=== PATIENT | male | born 1960 | race Caucasian/White ===

== ENCOUNTER → 2016-05-01 | Outpatient (CLI) | payer OTHER ==
[~2016-05-01] MED LIST: CYCL-36 PO; LORC10TA PO
--- NOTE | 2016-05-01 14:50 | RADRPT ---
EXAM DATE/TIME: 05/01/2016 14:15 [facility] COMPARISON: No previous studies available for comparison. INDICATIONS : Hypertension. MEDICAL HISTORY : Hypertension. SURGICAL HISTORY : Tonsillectomy. Left hip. ENCOUNTER: Initial ACUITY: 1 day PAIN SCORE: 0/10 LOCATION: chest FINDINGS: The lungs are clear. The heart is normal in size. The mediastinal contours are within normal limits. There are multiple old, healed right-sided rib fractures. CONCLUSION: 1. Old right-sided rib fractures. The lungs are clear. Asaf Alba MD on May 01, 2016 at 14:44 Board Certified Radiologist. This report was verified electronically.
--- NOTE | 2016-05-01 16:15 | RADRPT ---
EXAM DATE/TIME: 05/01/2016 13:56 [facility] COMPARISON: No previous studies available for comparison. INDICATIONS : Enlarged thyroid. MEDICAL HISTORY : Gastroesophageal reflux disease. SURGICAL HISTORY : Tonsillectomy. Left hip surgery. ENCOUNTER: Initial ACUITY: 1 day PAIN SCORE: 2/10 LOCATION: Right neck MEASUREMENTS: RIGHT LOBE: 1.7 x 1.4 x 4.2 cm LEFT LOBE: 1.6 x 1.7 x 4.0 cm FINDINGS: RIGHT LOBE: Homogeneous echotexture without nodules or cysts. Vascularity is within normal limits. LEFT LOBE: Isolated, 1 cm hypoechoic area in the posterior midpole of the left lobe of the thyroid. ISTHMUS: Normal in size without focal abnormality. CONCLUSION: Isolated, 1 cm hypoechoic nodule in the posterior midpole of the left lobe of the thyroid. Reji Jackman MD on May 01, 2016 at 16:12 Board Certified Radiologist. This report was verified electronically.
== END ==
LOC: HRAD 13:33
DX: I10 Essential (primary) hypertension (principal); E01.0 Iodine-deficiency related diffuse (endemic) goiter
CPT/HCPCS: 71020; 76536

== ENCOUNTER → 2016-06-24 | Outpatient (CLI) | payer OTHER ==
--- NOTE | 2016-06-24 15:38 | RADRPT ---
EXAM DATE/TIME: 06/24/2016 15:09 [facility] COMPARISON: No previous studies available for comparison. INDICATIONS : Right axilla pain and swelling that is worse in the evening time. MEDICAL HISTORY : Right axilla pain and swelling that is worse in the evening time. SURGICAL HISTORY : Left hip surgery. ENCOUNTER: Initial ACUITY: 4-6 months PAIN SCORE: 5/10 LOCATION: Right axilla. AREA EVALUATED: Right axilla. FINDINGS: MASSES: None. FLUID COLLECTIONS: None. OTHER: Negative. CONCLUSION: Negative for mass or fluid collection.. Laurent Alba MD FACR on June 24, 2016 at 15:36 Board Certified Radiologist. This report was verified electronically.
--- NOTE | 2016-06-24 15:39 | RADRPT ---
EXAM DATE/TIME: 06/24/2016 15:18 [facility] COMPARISON: No previous studies available for comparison. INDICATIONS : Left axilla pain and swelling that is worse in the evening time. MEDICAL HISTORY : Left axilla pain and swelling that is worse in the evening time. SURGICAL HISTORY : Left hip surgery. ENCOUNTER: Initial ACUITY: 4-6 months PAIN SCORE: 5/10 LOCATION: Left axilla. AREA EVALUATED: Left axilla. FINDINGS: MASSES: None. FLUID COLLECTIONS: None. OTHER: Negative. CONCLUSION: Negative for abscess or mass Laurent Alba MD FACR on June 24, 2016 at 15:36 Board Certified Radiologist. This report was verified electronically.
== END ==
LOC: HRAD 14:48
DX: R60.9 Edema, unspecified (principal)
CPT/HCPCS: 76882

== ENCOUNTER → 2016-11-14 | Outpatient (CLI) | payer OTHER ==
--- NOTE | 2016-11-14 14:23 | RADRPT ---
EXAM DATE/TIME: 11/14/2016 13:43 [facility] COMPARISON: US THYROID, May 01, 2016, 13:56. INDICATIONS : Thyroid nodule. MEDICAL HISTORY : Left hip trauma. Thyroid nodule. SURGICAL HISTORY : Tonsillectomy. Left hip surgery. ENCOUNTER: Initial ACUITY: 1 day PAIN SCORE: 2/10 LOCATION: Bilateral neck MEASUREMENTS: RIGHT LOBE: 1.7 x 1.5 x 5.1 cm LEFT LOBE: 1.8 x 1.8 x 4.2 cm FINDINGS: RIGHT LOBE: Homogeneous echotexture without nodules or cysts. Vascularity is within normal limits. LEFT LOBE: Homogeneous echotexture with a stable appearing hypoechoic nodule in the mid gland measuring 8 x 8 x 10 mm in diameter compared to 10 x 10 x 7 mm on the prior study. s. Vascularity is within normal reyes its. ISTHMUS: Normal in size without focal abnormality. CONCLUSION: Stable small hypoechoic nodule in the left lobe. Alli Guerrero MD on November 14, 2016 at 14:20 Board Certified Radiologist. This report was verified electronically.
== END ==
LOC: HRAD 13:19
DX: E04.1 Nontoxic single thyroid nodule (principal)
CPT/HCPCS: 76536

== ENCOUNTER → 2017-01-15 | Outpatient (CLI) | payer OTHER ==
--- NOTE | 2017-01-15 14:51 | RADRPT ---
EXAM DATE/TIME: 01/15/2017 13:41 [facility] COMPARISON: CHEST PA & LAT, May 01, 2016, 14:15. INDICATIONS : Cough, congestion. MEDICAL HISTORY : Hypertension. right rib cage crushed, right pneumothorax SURGICAL HISTORY : None. ENCOUNTER: Initial ACUITY: 1 month PAIN SCORE: 1/10 LOCATION: Right chest FINDINGS: The cardiac silhouette is normal in transverse diameter. The lungs are free of acute parenchymal opac ity. No effusions are identified. The aortic knob is prominent with tortuosity of the descending thor acic aorta. Multiple old right rib fractures are present CONCLUSION: 1. No acute cardiopulmonary disease. John Faria MD on January 15, 2017 at 14:49 Board Certified Radiologist. This report was verified electronically.
== END ==
LOC: HRAD 13:24
PROVIDERS: ATTEND Family Medicine
DX: J06.9 Acute upper respiratory infection, unspecified (principal)
CPT/HCPCS: 71020

== ENCOUNTER → 2017-01-22 | Outpatient (CLI) | payer OTHER ==
[~2017-01-22] MED LIST changes: +IOHEXOL 350 MG/ML 10 ML VIAL (for RAD DIAG) IVCONTRAST ONE
--- NOTE | 2017-01-22 16:14 | RADRPT ---
EXAM DATE/TIME: 01/22/2017 14:58 [facility] COMPARISON: No previous studies available for comparison. INDICATIONS : Persistant cough with Totuos Aorta IV CONTRAST: 73 cc Omnipaque 350 (iohexol) IV ; Cumulative dose for multiple exams. RADIATION DOSE: 59.49 CTDIvol (mGy) ; Combined studies - Thorax/Abdomen/Pelvis MEDICAL HISTORY : None SURGICAL HISTORY : None. ENCOUNTER: Initial ACUITY: 4 - 6 days PAIN SCALE: 0/10 LOCATION: Bilateral chest TECHNIQUE: Volumetric scanning was performed using a multi-row detector CT scanner. The data was post processed with a variety of visualization algorithms including full volume maximum intensity projection, multi -planar sliding thin slab reformation, curved planar reformation, and surface rendering techniques. Using automated exposure control and adjustment of the mA and/or kV according to patient size, radiat ion dose was kept as low as reasonably achievable to obtain optimal diagnostic quality images. DICOM format image data is available electronically for review and comparison. FINDINGS: LUNGS: Minimal ground glass opacities in the superior segment of the lower lobes bilaterally. Mild linear pa renchymal scarring in the inferior lingula and right middle lobe. MEDIASTINUM: Heart is unremarkable without significant pericardial effusion. No significant mediastinal adenopathy . Central main pulmonary arteries are. ABDOMEN: Liver demonstrates diffusely decreased echogenicity with ill-defined regions of increased enhancement in segments 2 and 4 the liver likely reflecting transient hepatic attenuation abnormalities given th e early arterial phase imaging. Gallbladder is normal in appearance pancreas is grossly unremarkable. The adrenal glands are normal. The kidneys demonstrate no evidence of solid renal mass or hydronephr osis. No free fluid or abdominal masses are identified. No para-aortic adenopathy is seen. Mild-to-mo derate sigmoid diverticulosis with scattered diverticula in the descending colon. No significant infl ammatory change. Bowel otherwise is unremarkable. PELVIS: No evidence of free fluid or pelvic mass. No abnormally enlarged inguinal or retroperitoneal lymph no esther are present. The bladder is unremarkable. Osseous structures: Multiple healed right-sided rib fractures. Osseous structures are otherwise intact without evidence f or acute bony fracture. There is a left femoral compression fixation screw in place. No abnormal lyti c or blastic bony lesions. THORACIC AORTA: The thoracic aortic root is normal with normal branching of the great vessels. There is mild ectasia of the distal arch measuring up to 3.5 cm. There is no evidence of aneurysm or dissection. ABDOMINAL AORTA: The aorta is normal in caliber without aneurysm or dissection. Duplicated left renal arteries. The re nal arteries are patent bilaterally. The proximal celiac and superior mesenteric arteries are patent and normal in diameter. PELVIC VESSELS: The internal iliac and external iliac vessels are patent without aneurysm or stenosis. CONCLUSION: 1. Mild ectasia of the distal thoracic arch measuring up to 3.5 cm. Otherwise, no evidence for aortic aneurysm or dissection. 2. Minimal glass opacities in the superior segments of the lower lobes bilaterally consistent with at electasis. 3. Hepatic steatosis with probable transient hepatic attenuation defects in segments 2 and 4 of the l iver. Please note that evaluation of the abdominal viscera is limited arterial phase imaging. 4. Colonic diverticulosis. Gian Colby MD on January 22, 2017 at 15:52 Board Certified Radiologist. This report was verified electronically.
== END ==
LOC: HRAD 13:14
PROVIDERS: ATTEND Family Medicine
DX: I71.2 Thoracic aortic aneurysm, without rupture (principal)
CPT/HCPCS: 71275; 74174; Q9967